=== PATIENT | female | born 1985 | race African-American/Black ===

== ENCOUNTER 2018-09-28 23:27 | Emergency (ER) | payer OTHER ==
[~2018-09-28] VITALS: Ht 167.6 cm; Wt 109.0 kg
[2018-09-29 00:04] VITALS: BP 147/80
== END 2018-09-29 02:45 | disposition home or self-care (01) ==
LOC: ER 23:27
DX: F12.10 Cannabis abuse, uncomplicated (principal); R00.2 Palpitations; H10.89 Other conjunctivitis; R20.2 Paresthesia of skin
CPT/HCPCS: 81025; 93005; 99283